=== PATIENT | male | born 1970 | race Caucasian/White ===

== ENCOUNTER 2017-08-21 11:02 | Emergency (ER) | payer BC ==
[~2017-08-21] VITALS: Ht 175.3 cm; Wt 94.3 kg
[~2017-08-21 11:02] MED LIST: AZIT250 PO; CARI350 PO; CLIN300 PO; CODGUAEL PO; CYCL10 PO; HYDACE5 PO; HYDACE5325 PO; HYDACE7.5 PO; HYDGUAL120 PO; HYDMOR2 PO; IBUP800 PO; NAPR500 PO; NAPR550 PO; OXYACE10 PO; OXYACE5T PO; PENVK500 PO; PROACE100 PO; RXCYCL10 PO; RXHYDACE PO; RXPROACE PO; TRAACE PO; TRAM50 PO
[2017-08-21] MEDS ORDERED: CYCL10 PO (12:37)
[2017-08-21] MEDS ORDERED: HYDR1TAB94 PO (12:37)
== END 2017-08-21 12:49 | disposition home or self-care (01) ==
LOC: ER 11:02
DX: S61.211A Laceration without foreign body of left index finger without damage to nail, initial encounter (principal); M54.5 Low back pain; Z23 Encounter for immunization; Z88.8 Allergy status to other drugs, medicaments and biological substances; Z88.0 Allergy status to penicillin; Z88.5 Allergy status to narcotic agent; W26.8XXA Contact with other sharp object(s), not elsewhere classified, initial encounter; Y93.89 Activity, other specified
CPT/HCPCS: 90714

== ENCOUNTER 2020-09-23 14:24 | Emergency (ER) | payer OTHER ==
[~2020-09-23] VITALS: Ht 175.3 cm; Wt 93.0 kg
[~2020-09-23 14:24] MED LIST changes: +HYDR1TAB94 PO
== END 2020-09-23 16:04 | disposition home or self-care (01) ==
LOC: ER 14:24
DX: U07.1 COVID-19 (principal); Z88.0 Allergy status to penicillin; Z88.5 Allergy status to narcotic agent; Z88.8 Allergy status to other drugs, medicaments and biological substances
CPT/HCPCS: 99284

== ENCOUNTER 2021-08-09 09:25 | Emergency (ER) | payer OTHER ==
[~2021-08-09] VITALS: Ht 175.3 cm; Wt 95.2 kg
[2021-08-09] MEDS ORDERED: IBU800 MG PO (10:37)
== END 2021-08-09 10:50 | disposition home or self-care (01) ==
LOC: ER 09:25
DX: J06.9 Acute upper respiratory infection, unspecified (principal); Z88.0 Allergy status to penicillin; Z88.5 Allergy status to narcotic agent; Z20.822 Contact with and (suspected) exposure to COVID-19
CPT/HCPCS: 99282